=== PATIENT | male | born 1960 | race Caucasian/White ===

== ENCOUNTER 2018-05-30 16:50 | Outpatient (CLI) | payer OTHER | END 2018-05-30 16:58 | disposition home or self-care (01) | LOC: LAB 16:50 | DX: R97.20 Elevated prostate specific antigen [PSA] (principal) ==

== ENCOUNTER 2018-06-17 07:10 | Outpatient (CLI) | payer OTHER | END 2018-06-17 07:40 | disposition home or self-care (01) | LOC: SONOGRAMA 07:10 | DX: R97.20 Elevated prostate specific antigen [PSA] (principal) ==